=== PATIENT | female | born 2000 | race Two or more races ===

== ENCOUNTER 2025-10-27 10:34 | Emergency (ER) | payer OTHER ==
[~2025-10-27] VITALS: Ht 160 cm; Wt 68.0 kg
[2025-10-27] MEDS ORDERED: ONDANSETRON HCL 2 MG/ML VIAL IV STA (11:29)
[2025-10-27] MEDS ORDERED: FAMOTIDINE/PF 20 MG/2 ML VIAL IV STA (11:29)
[2025-10-27] MEDS ORDERED: 0.9 % SODIUM CHLORIDE 1,000 ML IV STA (11:29)
[2025-10-27] MEDS ORDERED: METOCLOPRAMIDE HCL 5 MG/ML VIAL IV ONE (11:30)
[2025-10-27] MEDS ORDERED: ONDANSETRON HCL 2 MG/ML VIAL ONE ×2 (12:10→12:11)
[2025-10-27] MEDS ORDERED: METOCLOPRAMIDE HCL 5 MG/ML VIAL ONE (12:10)
[2025-10-27] MEDS ORDERED: FAMOTIDINE/PF 20 MG/2 ML VIAL ONE (12:10)
[2025-10-27 13:06] LABS: BASO % 0.2 % (0.1-1.2); EOS # 0.01 (0.04-0.54); EOS % 0.1 % (0.7-7.0); LYMPH # 0.25 (1.18-3.74); LYMPH % 1.9 % (19.3-53.1); MEAN PLATELET VOLUME 10.70 fl (9.4-12.4); MONO # 0.35 (0.24-0.82); MONO % 2.7 % (4.7-12.5); NEUT # 12.24 (1.56-6.13); NEUT % 94.8 % (34.0-71.1); RED CELL DISTRIBUTION WIDTH 12.2 % (11.6-14.4)
[2025-10-27 13:14] LABS: INR 1.04
[2025-10-27 13:16] LABS: ALT/SGPT 15.0 U/L (12-78); AST/SGOT 13.0 U/L (15-37); BILIRUBIN TOTAL 0.84 mg/dL (0.3-1.2); BILIRUBIN,CONJUGATED 0.32 mg/dL (0.0-0.2); BUN CREA RATIO 17.0 (7.0-25.0); CREATININE SERUM 0.82 mg/dL (0.55-1.02); GFR 85.65; GLUCOSE FASTING 128.0 mg/dL (65-100); OSMOLALITY SERUM 285.0 MOSM/KG (275-295)
== END 2025-10-27 16:27 | disposition home or self-care (01) ==
LOC: ER 10:35
PROVIDERS: General Practice
DX: K52.9 Noninfective gastroenteritis and colitis, unspecified (principal); R11.10 Vomiting, unspecified; R11.2 Nausea with vomiting, unspecified; A08.8 Other specified intestinal infections